=== PATIENT | female | born 1990 | race Hispanic/Latino ===

== ENCOUNTER 2019-07-26 09:34 | Outpatient (CLI) | payer OTHER ==
--- NOTE | 2019-07-26 10:55 | ULT ---
OB ULTRASOUND: HISTORY: anatomy and cervical length. FINDINGS: A single live intrauterine gestation is seen with measurements corresponding to an estimated gestatio nal age of 20 weeks 1 days and BETI at 12/12/2019. The estimated weight measures 326 gm or 12 ou nces (46% by Hadlock criteria). measurements are as follows: BPD 4.68 cm, 20 weeks 2 days HC 17.39 cm, 20 weeks 0 days AC 14.73 cm, 20 weeks 1 day FL 3.21 cm, 20 weeks 0 days heart rate measures 156 b.p.m. The CHEMA measures 9.1 cm. Placenta is posteriorly located witho ut evidence of placenta previa. Cervical length measures 3.1 cm. A 3-vessel cord, cord insertion, kidneys, bladder, stomach, 4-chamber heart, lateral ventricles , cerebellum, spine, lips/nose, upper and lower extremities are visualized. No definite abnorm alities are seen. IMPRESSION: Single live intrauterine 20 weeks 1 day estimated gestational age and estimated date of del radha at 12/11/2009. POS: OFF
== END 2019-07-26 09:35 | disposition home or self-care (01) ==
LOC: BICULT 09:34
PROVIDERS: ATTEND Family Medicine
DX: Z34.82 Encounter for supervision of other normal pregnancy, second trimester (principal); Z3A.20 20 weeks gestation of pregnancy
CPT/HCPCS: 76805

== ENCOUNTER 2019-11-11 19:42 | Inpatient (IN) | payer MEDICAID, OTHER, SELFPAY ==
[2019-11-11] MEDS ORDERED: hydrALAZINE 20 MG/ML VIAL SLOW IVP PRN (20:18)
[2019-11-11] MEDS ORDERED: Butorphanol Tartrate 1 MG/ML VIAL SLOW IVP PRN ×2 (20:50→22:31)
[2019-11-11] MEDS ORDERED: Promethazine HCl 25 MG/ML VIAL IM PRN ×2 (20:50→22:25)
[2019-11-11] MEDS ORDERED: Ondansetron PF 4 MG/2 ML Vial IVP PRN ×2 (20:50→22:25)
[2019-11-11] MEDS ORDERED: Acetaminophen 500 MG TAB PO PRN (20:50)
[2019-11-11] MEDS ORDERED: Misoprostol 200 MCG TAB PR PRN (20:53)
[2019-11-11] MEDS ORDERED: NS / Oxytocin 40 units/1000ml 1,000 ML IV PRN (20:53)
[2019-11-11] MEDS ORDERED: Lidocaine 1% (PF) 30 ML VIAL SC PRN (20:53)
[2019-11-11] MEDS ORDERED: Carboprost 250 MCG/ML AMP IM PRN (20:53)
[2019-11-11] MEDS ORDERED: Methylergonovine 0.2 MG/ML VIAL IM PRN (20:53)
--- NOTE | 2019-11-11 20:58 | PDOC.FPROB ---
FMR OB H&P: HPI - History of Present Illness Chief Complaint: Vaginal Bleeding, Ctx Indentification: 29 yo @ 35.3 weeks History of Present Illness: Pt comes in with complaint of ctx starting 5 hours ago. Reports started having vaginal bleeding an hour ago. Reports FM. Denies LOF. Denies any urinary sx's, burning with urination. Pt denies any fever or chills. Denies any chest pain, SOB. Denies any n/v/d/c. Primary Care Physician: Jean Pierre FMR OB H&P: Current - Care : 3 Para: 2 Gestational age: 35.3 weeks Due date: 12/13/2019 - OB Labs Blood type: unknown RH: unknown Antibody Screen: unknown HIV: unknown RPR: unknown HepBsAg: unknown Quad screen: unknown Gonorrhea: unknown Chlamydia: unknown GBS: unknown FMR OB H&P: History - Past Medical History PMH: Denies - OB History OB History: 2 prior term - BANK MESSENGER History BANK MESSENGER History: Denies any abnormal pap smear or STDs - Surgical History Sx History: None - Social History Social History: Denies any smoking, drinking or illicit drug use FMR OB H&P: Medications - Current Home Medications: Medication Instructions Recorded Confirmed Type Vit,Calc76/Iron/Folic 1 tab PO DAILY 03/08/16 11/12/19 History [Prenatabs Rx Tablet] Allergies/Adverse Reactions: Allergies Allergy/AdvReac Type Severity Reaction Status Date / Time No Known Drug Allergies Allergy Verified 11/11/19 21:32 FMR OB H&P: ROS - Review of Systems General: denies: fever/chills, weight/appetite/sleep changes Eyes: denies: vision changes, double vision ENT: denies: nasal congestion Cardiovascular: denies: chest pain Respiratory: denies: cough, congestion, shortness of breath Gastrointestinal: denies: abdominal pain, indigestion, bloating, cramping, nausea, vomiting, diarrhea, constipation Genitourinary (Female): reports: vaginal bleeding, contractions. denies: incontinence, dysuria, hematuria, polyuria, hesitancy, vaginal discharge, vaginal pain, vaginal mass/sore, vaginal pressure Musculoskeletal: denies: pain Integumentary: denies: itching, rash Breast: denies: lumps, bumps Psychological: denies: depression, anxiety FMR OB H&P: Vital Signs - Maternal Vital signs: T 98.2, P 64, RR 18 BP 100/55 - Heart Tones Baseline: 150 Variability: moderate Acceleration: present Deceleration: variable (only one variable noted and has since recovered) Category: category 1 FMR OB H&P: Physical Exam - Physical Exam General: NAD, awake, alert and oriented HEENT: normocephalic and atraumatic, grossly normal vision, grossly normal hearing Neck: supple, FROM, trachea midline Chest: non-tender to palpation Heart: RRR, normal S1/S2, no murmurs/rubs/gallops, pulses present General: CTAB, no respiratory distress, good air movement, no rales/rhonchi, no wheezing, no retractions Abdomen: soft, gravid, non-tender, bowel sound present, no masses, no hernias Musculoskeletal: FROM in all four extremities Neurological: sensation to pain,touch and proprioception grossly normal Skin: no rash, good tugor Psychiatric: normal mood and affect - Pelvic Exam SVE: 50/-1, A moderate amount of blood noted with check Presentation: Vertex, confirmed with bedside sono FMR OB H&P: A/P - Problem List (1) Current Visit: Yes Status: Acute Qualifiers: Weeks of gestation: 35 weeks Qualified Code(s): Z3A.35 - 35 weeks gestation of (2) Vaginal bleeding Current Visit: Yes Status: Acute Code(s): N93.9 - ABNORMAL UTERINE AND VAGINAL BLEEDING, UNSPECIFIED Disposition: 29 yo @ 35.3 weeks comes in with ctx and vaginal bleeding -Pt in Latent Labor with moderate amount of blood on check -Bedside sono- baby vertex. No previa noted. -US ordered to assess for cause of bleed. -Will get GBS cx . Dispo: will admit to L&D. Will get admission labs. Will await formal sono results and plan further. Discussion: Date/Time: 11/11/192055 This H&P was discussed with [] and [] who agree with the above documentation and plan. Addendum - Attending - Attending Attestation Date/Time: 11/12/19301 I personally evaluated the patient and discussed the management with Dr. Le. I agree with the History, Examination, Assessment and Plan documented above. Dr. Greenfield notified.
[2019-11-11 20:59] LABS: #Eosinphils 0.1 thou/uL (0.0-0.7); #Lymphocytes 1.7 thou/uL (1.20-3.40); #Monocytes 0.8 thou/uL (0.11-0.59); #Neutrophils 9.7 thou/uL (1.40-6.50); %Basophils 0.1 % (0.0-1.0); %Eosinophils 1.1 % (0.0-10.0); %Lymphocytes 13.7 % (21.0-51.0); %Monocytes 6.5 % (0.0-10.0); %Neutrophils 78.6 % (42.0-75.0); Hemoglobin 12.9 g/dL (12.0-16.0); Mean Corpuscular HGB CONC 33.9 g/dL (32.0-36.0); Mean Corpuscular Hemoglobin 32.6 pg (27.0-31.0); Mean Corpuscular Volume 96.3 fL (78.0-98.0); Platelet Count 199 thou/uL (130-400); RBC Distribution Width 11.7 % (11.5-14.5); Red Blood Cell (RBC) Count 3.94 mill/uL (4.20-5.40); White Blood Cell (WBC) Count 12.3 thou/uL (4.8-10.8)
[2019-11-11] MEDS ORDERED: Lactated Ringer's 1,000 ML IV SCH (21:00)
[2019-11-11] MEDS ORDERED: Penicillin G Potassium 5 MILL.UNITS in Sodium Chloride 0.9% 100 ML IVPB SCH (21:00)
[2019-11-11] MEDS ORDERED: Betamet Acet/Betamet Na Ph 30 MG/5 ML VIAL ONE (21:12)
[2019-11-11] MEDS ORDERED: Bicitra 30 ML UDCUP PO SCH (21:15)
[2019-11-11] MEDS ORDERED: CEFAZOLIN 2 GM in Premix Bag 1 BAG IVPB SCH (21:15)
[2019-11-11] MEDS ORDERED: PHENYLEPHRINE-NS 100 MCG/ML 10 ML SYRINGE ONE (21:25)
[2019-11-11] MEDS ORDERED: Ondansetron PF 4 MG/2 ML Vial ONE ×3 (21:25→23:42)
[2019-11-11] MEDS ORDERED: Oxytocin 10 UNITS/ML VIAL ONE ×2 (21:25→22:02)
[2019-11-11] MEDS ORDERED: MORPHINE 5 MG/10 ML PF VIAL ONE (21:25)
[2019-11-11] MEDS ORDERED: Dexamethasone 4 mg/ml Vial ONE (21:25)
--- NOTE | 2019-11-11 21:25 | PDOC.EVN ---
Event Note - Event Note Event Note: Abruption noted on formal sono. Notified Dr. Greenfield. Will plan on going back for at this time.
--- NOTE | 2019-11-11 21:27 | ULT ---
Limited Obstetrical Ultrasound INDICATION: Vaginal bleeding and firm uterus TECHNIQUE: Grayscale, M-mode Doppler, color Doppler and spectral Doppler images were obtained. Imagin g is focused on the clinical indication. COMPARISON: July 26, 2019 obstetrical ultrasound FINDINGS: GESTATION: Number of gestations: Single. Presentation: Cephalic. heart rate: 160 bpm. Placental location: Posterior and not well seen. There is a complex nonvascular masslike prominence i nvolving the anterior uterine wall suspicious for a large hematoma. The hematoma in its greatest dimension measures approximately 11.6 x 4.8 cm. Previa: No evidence for previa. Cervical length: Not well seen CHEMA: 11.5 cm. LIMITED SURVEY: No abnormality as visualized. IMPRESSION: 1. Single live intrauterine gestation in vertex presentation. 2. Large complex nonvascular masslike prominence involving the anterior uterine wall inducing mass ef fect on the underlying interstitial sinus suspicious for large intramural hematoma possibly from placental abruption. The placenta was posterior location on the comparison examination. This was not well-seen on the current study. 3. Dr. Saini was at the bedside during the examination and was aware of the findings.
[2019-11-11] MEDS ORDERED: EPHEDRINE 25 MG/5 ML SYRINGE ONE (21:48)
[2019-11-11 21:53] LABS: Syphilis Antibody Nonreactive (Nonreactive); Syphilis Antibody Index 0.05 S/CO (<1.00 Non-Reactive)
[2019-11-11] MEDS ORDERED: Methylergonovine 0.2 MG/ML VIAL ONE (21:58)
[2019-11-11 22:16] LABS: HBSAg Index 0.17 S/CO (0-0.99); Hep B Surf Ag Non-Reactive S/CO (NonReactive)
[2019-11-11] MEDS ORDERED: Tranexamic Acid 1,000 MG/10 ML VIAL ONE ×2 (22:23→23:13)
[2019-11-11] MEDS ORDERED: HYDROmorphone 2 MG/ML VIAL SLOW IVP PRN (22:25)
[2019-11-11] MEDS ORDERED: Meperidine HCl/PF 25 MG/ML VIAL SLOW IVP PRN (22:25)
[2019-11-11] MEDS ORDERED: Naloxone HCl 0.4 mg/ml Vial IVP PRN ×2 (22:25)
[2019-11-11] MEDS ORDERED: L&D-Morphine 4 MG/ML VIAL SLOW IVP PRN (22:25)
[2019-11-11] MEDS ORDERED: Ketorolac Tromethamine 30 MG/ML VIAL IVP PRN (22:25)
[2019-11-11] MEDS ORDERED: Promethazine HCl 25 MG SUPP PR PRN (22:25)
[2019-11-11] MEDS ORDERED: Naloxone HCl 0.4 mg/ml Vial IV PRN (22:25)
[2019-11-11] MEDS ORDERED: diphenhydrAMINE 50 MG/ML VIAL IVP PRN (22:25)
[2019-11-11] MEDS ORDERED: Ondansetron HCl/PF 4 MG/2 ML Vial IVP PRN (22:25)
[2019-11-11] MEDS ORDERED: Communication Order-Pharmacy FS SCH (22:30)
[2019-11-11] MEDS ORDERED: Ketorolac Tromethamine 30 MG/ML VIAL IVP SCH (22:30)
[2019-11-11 22:38] LABS: Actual Bicarbonate (HCO3v) 22 mEq/L (22-28); Base Excess -6.7 mEq/L (-2.0 to +3.0)
[2019-11-11 22:39] LABS: pH (Cord, venous) 7.21 (7.32-7.43)
[2019-11-11 22:41] LABS: Actual Bicarbonate (HCO3a) 22.5 mEq/L (22-28); Base Excess (BEa) -4.8 mEq/L (-2.0 to +3.0)
[2019-11-11] MEDS ORDERED: Tranexamic Acid 1,000 MG in Sodium Chloride 0.9% 250 ML 100 ML IVPB SCH (23:10)
[2019-11-11 23:19] VITALS: BMI 29.7
[2019-11-11] MEDS ORDERED: Misoprostol 200 MCG TAB ONE (23:21)
[2019-11-12] MEDS ORDERED: Promethazine HCl 25 MG/ML VIAL ONE (00:13)
[2019-11-12] MEDS ORDERED: Meperidine HCl/PF 25 MG/ML VIAL IM PRN (00:43)
[2019-11-12] MEDS ORDERED: Lanolin Ointment 7 GM TUBE TOP PRN (00:43)
[2019-11-12] MEDS ORDERED: Bisacodyl 10 MG SUPP PR PRN (00:43)
[2019-11-12] MEDS ORDERED: hydrALAZINE 20 MG/ML VIAL SLOW IVP PRN (00:43)
[2019-11-12] MEDS ORDERED: Ondansetron PF 4 MG/2 ML Vial IVP PRN (00:43)
[2019-11-12] MEDS ORDERED: NS / Oxytocin 40 units/1000ml 1,000 ML IV SCH (00:43)
[2019-11-12] MEDS ORDERED: Promethazine HCl 25 MG/ML VIAL IM PRN (00:43)
[2019-11-12] MEDS ORDERED: HYDROcodone/Acetaminophen 5/325 mg Tablet PO PRN (00:43)
[2019-11-12] MEDS ORDERED: Penicillin G 2.5 MILL.units 2.5 MILL.UNITS in Premix Bag 1 BAG IVPB SCH (01:00)
[2019-11-12] MEDS: Misoprostol 200 MCG TAB PO SCH (02:26)
[2019-11-12] MEDS: Ketorolac Tromethamine 30 MG/ML VIAL IVP SCH ×3 (05:30→19:00)
--- NOTE | 2019-11-12 05:37 | PDOC.OPDEL ---
OB Operative/Delivery Note Delivery Dr/Surgeon: Jean Pierre Assist: Mimi PGY-3 Pre-Delivery Diagnosis: active labor Procedure/Post Delivery Dx: primary low transverse CS Weeks gestation: 35 (3 days) Anesthesia: spinal - Findings A Sex: female - 1 min: 7 - 5 min: 8 - Additional Findings/Plan Placenta delivered: manual removal findings: low transverse hysterotomy without extension, other ( Couvelaire uterus noted) Estimated blood loss: 1085 Compilations/Other Findings: Delivery note: Pt is a 29 yo F @ 35.3 weeks who presents for primary C- section 2/2 placental abruption After risks, benefits and alternatives were explained to the patient, she gave informed consent. Pre-operative abx included cefazolin 2gm IV. The patient was taken to the operating room and spinal anesthesia was initiated. She was placed in the supine position w/ a left tilt and prepped and drapped in usual sterile fashion. A Pfannestiel incision was made w/ a scalpel and carried down to the level of the fascia which was sharply nicked. The fascial cut was extended bilaterally w/ Vazquez scissors. The inferior and superior edges of the cut fascial edges were elevated w/ yg clamps and the underlying rectus muscles were sharply and bluntly dissected free. The recti were divded digitally and retracted manually. The pertoneum was entered bluntly and retracted manually. Bladder blade was placed. Couvalaire Uteurs was noted from the placental abruption. A low transverse score was made w/ the scalpel and the uterus was entered in the midline w/ the scalpel. Bloody amniotic fluid was seen. The hysterotomy was extended manually. Several large clots were seen upon entry of the uterus. The was noted to be vertex and was easily delivered by fundal pressure. Mouth and nares were bulb suctioned. Cord clamped and cut and grossly normal female infant was handed to waiting nurse. Cord Gas segment and cord blood was obtained. Placenta was manually extracted, found to be intact w/ 3 vessel cord and sent to pathology for review. Several more large clots were removed. The uterus was externalized and the endometrium was curetted w/ a dry lap. The bladder blade was replaced and the uterus was closed w/ a running locking #1 Monocryl suture followed by a few horizontal matress 0-Vicryl suture on the corners of the hysterotomy and in the center of the incision for hemostasis . A single dose of methergine was given for mild uterine atony, which resolved. TXA was administered x 1 intraoperatively, and x 1 in recovery. Floseal was applied to a serosal laceration superior to the right corner. Following this hemostasis was noted. The abdomen was irrigated w/ saline and suctioned free of clots. The uterus was internalized and the hysterotomy was again noted to be hemostatic. There was an area on lower peritoneum that was bleeding and closed with 2-0 chromic suture in running locking fashion. The peritoneal layer was closed w/ 3-0 vicryl suture. The fascia was closed w/ a running non-locking 0-PDS suture. The subcutanous layer was irrigated and bleeders were made hemostatic w/ bovie cautery. The subcutaneous layer was closed with 3 3-0 vicryl suture in interrupted fashion. The skin was approximated w/ ursula and a pressure dressing was placed. All counts were correct. The pt tolerated the porcedure well and was taken to the recovery room in stable condition. QBL 1085 Complications: Couvalaire Uterus and anterior placental abruption Findings: Grossly normal female w/ apgars of 7 and 8, umbilical artery pH 7.21, umbilical vein pH 7.26 Grossly normal placenta w/ 3 vessel cord sent for pathology. Drains: villalta to gravity draining clear urine. Post delivery plan: routine recovery
[2019-11-12 05:39] LABS: Hemoglobin 10.4 g/dL (12.0-16.0); Mean Corpuscular HGB CONC 33.8 g/dL (32.0-36.0); Mean Corpuscular Hemoglobin 32.6 pg (27.0-31.0); Mean Corpuscular Volume 96.5 fL (78.0-98.0); Mean Platelet Volume 6.9 fL (7.4-10.4); Platelet Count 170 thou/uL (130-400); RBC Distribution Width 11.4 % (11.5-14.5); Red Blood Cell (RBC) Count 3.19 mill/uL (4.20-5.40); White Blood Cell (WBC) Count 13.3 thou/uL (4.8-10.8)
[2019-11-12] MEDS ORDERED: Sodium Chloride 0.9% 10 ML ONE ×2 (05:48→12:18)
[2019-11-12] MEDS: Ferrous Sulfate 325 MG TAB PO SCH ×2 (08:04→22:46)
[2019-11-12] MEDS: Simethicone Chewable 80 MG TAB PO PRN ×2 (08:24→16:17)
[2019-11-12] MEDS: Docusate Calcium (SURFAK) 240 MG CAP PO SCH ×2 (08:24→20:16)
[2019-11-12] MEDS: Prenatal Vitamin 1 TAB PO SCH (08:24)
[2019-11-12] MEDS ORDERED: Adacel (T-DAP) 0.5 ML SYRINGE IM ONE (09:00)
[2019-11-12] MEDS ORDERED: Butorphanol Tartrate 1 MG/ML VIAL SLOW IVP PRN (10:30)
[2019-11-12] MEDS: HYDROcodone/Acetaminophen 5/325 mg Tablet PO PRN (16:16)
[2019-11-12] MEDS: Ibuprofen 800 MG TAB PO SCH (20:16)
[2019-11-13] MEDS: Ibuprofen 800 MG TAB PO SCH ×4 (05:53→21:16)
[2019-11-13] MEDS: Misoprostol 200 MCG TAB PO SCH (08:43)
[2019-11-13] MEDS: Ferrous Sulfate 325 MG TAB PO SCH ×2 (08:55→21:16)
[2019-11-13] MEDS: Docusate Calcium (SURFAK) 240 MG CAP PO SCH ×2 (08:55→21:16)
[2019-11-13] MEDS: Prenatal Vitamin 1 TAB PO SCH (08:55)
[2019-11-13] MEDS: HYDROcodone/Acetaminophen 5/325 mg Tablet PO PRN ×2 (08:56→16:15)
[2019-11-14] MEDS: Ibuprofen 800 MG TAB PO SCH ×2 (04:21→14:16)
[2019-11-14 08:06] VITALS: BP 102/51; TEMP 97.8
[2019-11-14] MEDS: Prenatal Vitamin 1 TAB PO SCH (08:27)
[2019-11-14] MEDS: Ferrous Sulfate 325 MG TAB PO SCH (08:27)
[2019-11-14] MEDS: Docusate Calcium (SURFAK) 240 MG CAP PO SCH (08:27)
[2019-11-14] MEDS ORDERED: Milk Of Magnesia 30 ML UDCUP PO SCH (08:30)
[2019-11-14] MEDS: HYDROcodone/Acetaminophen 5/325 mg Tablet PO PRN ×2 (08:32→14:16)
== END 2019-11-14 16:55 | disposition home or self-care (01) | DRG 786 ==
LOC: L&D/OP 19:42 → L&D 20:50 → NSY 22:26 → L&D 22:55 → 3SW 11-12 01:40
PROVIDERS: ADMIT Family Medicine; ATTEND Family Medicine
PROC: 10D00Z1 Extraction of Products of Conception, Low, Open Approach (ICD-10-PCS; principal; 2019-11-12)
DX: O45.93 Premature separation of placenta, unspecified, third trimester (principal); O60.14X0 Preterm labor third trimester with preterm delivery third trimester, not applicable or unspecified; Z3A.35 35 weeks gestation of pregnancy; Z37.0 Single live birth; O75.89 Other specified complications of labor and delivery
CPT/HCPCS: 36415; 51702; 76815; 82805; 85025; 85027; 86780; 86850; 86900; 86901; 87340; 88307; 99285; J0690; J0702; J1100; J1885; J2210; J2274; J2310; J2405; J2550; J2590; J7050